=== PATIENT | female | born 1965 | race Caucasian/White ===

== ENCOUNTER 2018-01-19 07:57 | Emergency (ER) | payer OTHER ==
[~2018-01-19] VITALS: Ht 152.4 cm; Wt 114.8 kg
[~2018-01-19 07:57] MED LIST: ALPRAZOLAM0.5 MG PO; AUGMENTIN500 MG PO; AUGMENTIN875 MG PO; BACTRIM,SEPT1 TABLET PO; BACTROBAN NASAL1 G1 BOTH NARES; BENTYL20 MG PO; CLINDAMYCIN HC300 MG PO; DELTASONE20 MG PO; DUONEB 2.5-0.5 M3 ML IH; FLOVENT DISKUS1 DISK IH; HABITROL,NICODE21 MG TD; IMODIUM MS REL1 EACH PO; KEFLEX500 MG PO; LEVAQUIN750 MG PO; LIPITOR5 MG PO; METHYLPHENIDATE20 M1 PO; NAPROSYN500 MG PO; NICOTINE PATCH1 EAC2 TD; OXYCODONE-APAP1 EAC6 PO; RITALIN LA20 MG PO; SPIRIVA1 INHALATI IH; TOBREX5 ML RIGHT EYE; VENTOLIN HFA18 GM IH; ZOFRAN4 MG PO
[2018-01-19 08:23] LABS: BASOPHIL (%) 0.6 % (0-1); BASOPHIL COUNT 0.1 K/uL (0-0.1); EOSINOPHIL (%) 1.4 % (0-5); EOSINOPHIL COUNT 0.2 K/uL (0-0.3); HEMATOCRIT 45.4 % (36.0-46.0); HEMOGLOBIN 15.1 G/DL (11.9-15.5); IMMATURE GRANULOCYTE (%) 0.3 % (0.0-0.7); LYMPHOCYTE (%) 31.9 % (15-42); LYMPHOCYTE COUNT 4.1 K/uL (1.0-2.8); MCH 32.1 PG (29.0-34.0); MCHC 33.3 G/DL (30.0-36.0); MCV 96.4 FL (83-99); MONOCYTE (%) 5.3 % (3-12); MONOCYTE COUNT 0.7 K/uL (0-0.8); NEUTROPHIL (%) 60.5 % (45-76); NEUTROPHIL COUNT 7.8 K/uL (1.8-6.4); PLATELET COUNT 314 K/uL (156-360); RBC DIS.WIDTH-CV 13.5 % (11.8-14.6); RED BLOOD COUNT 4.71 M/uL (3.80-5.20)
[2018-01-19 09:04] LABS: CHLORIDE 100 MEQ/L (99-109); POTASSIUM 3.6 MEQ/L (3.7-5.4); SODIUM 140 MEQ/L (136-147)
[2018-01-19 09:09] LABS: CREATININE 0.9 MG/DL (0.6-1.3); GFR ESTIMATE (CALCULATED) > 59 mL/min/; GLUCOSE 153 mg/dL (70-99); UREA NITROGEN (BUN) 13 mg/dL (9-23)
[2018-01-19] MEDS ORDERED: ZITHROMAX Z-PA250 MG PO (12:33)
[2018-01-19] MEDS ORDERED: PREDNISONE50 MG PO (12:33)
[2018-01-19 13:04] VITALS: BP 122/79
== END 2018-01-19 13:06 | disposition home or self-care (01) ==
LOC: EME 07:57
PROVIDERS: Emergency Medicine
DX: J44.1 Chronic obstructive pulmonary disease with (acute) exacerbation (principal); J20.9 Acute bronchitis, unspecified; J44.0 Chronic obstructive pulmonary disease with (acute) lower respiratory infection; F17.210 Nicotine dependence, cigarettes, uncomplicated; F41.9 Anxiety disorder, unspecified
CPT/HCPCS: 71046; 80048; 85025; 87502; 87651 90; 93005; 94640; 94640 76; 99281; 99283; J2930

== ENCOUNTER 2018-03-03 10:41 | Emergency (ER) | payer OTHER ==
[~2018-03-03] VITALS: Ht 152.4 cm; Wt 117.3 kg
[~2018-03-03 10:41] MED LIST changes: +PREDNISONE50 MG PO; +ZITHROMAX Z-PA250 MG PO
[2018-03-03 12:29] LABS: HEMATOCRIT 46.1 % (36.0-46.0); HEMOGLOBIN 15.5 G/DL (11.9-15.5); MCH 32.8 PG (29.0-34.0); MCHC 33.6 G/DL (30.0-36.0); MCV 97.7 FL (83-99); PLATELET COUNT 333 K/uL (156-360); RBC DIS.WIDTH-CV 13.7 % (11.8-14.6); RBC DIS.WIDTH-SD 49.6 % (39-53); RED BLOOD COUNT 4.72 M/uL (3.80-5.20); WHITE BLOOD COUNT 11.6 K/uL (4.1-10.2)
[2018-03-03 12:40] LABS: ALBUMIN 3.9 g/dL (3.2-4.8)
[2018-03-03 12:41] LABS: CHLORIDE 101 mEq/L (99-109); POTASSIUM 4.3 mEq/L (3.7-5.4); SODIUM 140 mEq/L (136-147)
[2018-03-03 12:43] LABS: GLUCOSE 177 mg/dL (70-99)
[2018-03-03 12:45] LABS: TOTAL BILIRUBIN 0.3 mg/dL (0.0-1.0)
[2018-03-03 12:46] LABS: ALKALINE PHOSPHATASE 110 IU/L (3-129)
[2018-03-03 12:47] LABS: CREATININE 1.2 mg/dL (0.6-1.3); GFR ESTIMATE (CALCULATED) 50 mL/min/
[2018-03-03 12:48] LABS: AST (GOT) 19 IU/L (2-34); UREA NITROGEN (BUN) 13 mg/dL (9-23)
[2018-03-03 12:49] LABS: ALT (GPT) 23 IU/L (3-49)
[2018-03-03 13:34] LABS: APPEARANCE CLEAR ((CLEAR)); BILIRUBIN NEGATIVE; BLOOD SMALL; COLOR YELLOW ((YELLOW)); GLUCOSE (STRIP) NEGATIVE; KETONES NEGATIVE; LEUKOCYTES NEGATIVE; NITRITE NEGATIVE; PROTEIN (STRIP) NEGATIVE; SPECIFIC GRAVITY 1.017 (1.000-1.030); UROBILINOGEN 0.2 MG/DL (0.2-1.0)
[2018-03-03 13:38] LABS: BACTERIA NONE SEEN /HPF; EPITHELIAL CELLS 1+ /HPF; HYALINE CASTS 0-5 /LPF; MUCUS TRACE /LPF; RED BLOOD CELLS 0-5 /HPF (0-5); UCUL ADDED? NO; WHITE BLOOD CELLS 0-5 /HPF (0-5)
[2018-03-03 14:42] VITALS: BP 101/65
== END 2018-03-03 14:43 | disposition home or self-care (01) ==
LOC: EME 10:41
PROVIDERS: Nurse Practitioner Family
DX: R60.0 Localized edema (principal); M54.5 Low back pain; J44.9 Chronic obstructive pulmonary disease, unspecified; F41.9 Anxiety disorder, unspecified; F17.210 Nicotine dependence, cigarettes, uncomplicated; Z90.49 Acquired absence of other specified parts of digestive tract; Z88.1 Allergy status to other antibiotic agents
CPT/HCPCS: 72100; 80053; 81003; 85027; 93970; 99281; 99284

== ENCOUNTER 2018-03-17 09:10 | Emergency (ER) | payer OTHER ==
[~2018-03-17] VITALS: Ht 152.4 cm; Wt 117.5 kg
[2018-03-17 09:29] LABS: HEMATOCRIT 46.1 % (36.0-46.0); HEMOGLOBIN 15.4 G/DL (11.9-15.5); MCH 32.4 PG (29.0-34.0); MCHC 33.4 G/DL (30.0-36.0); MCV 96.8 FL (83-99); PLATELET COUNT 333 K/uL (156-360); RBC DIS.WIDTH-CV 13.6 % (11.8-14.6); RED BLOOD COUNT 4.76 M/uL (3.80-5.20); WHITE BLOOD COUNT 12.2 K/uL (4.1-10.2)
[2018-03-17 09:39] LABS: CHLORIDE 101 mEq/L (99-109)
[2018-03-17 09:40] LABS: SODIUM 140 mEq/L (136-147)
[2018-03-17 09:42] LABS: GLUCOSE 144 mg/dL (70-99); TOTAL PROTEIN 7.4 g/dL (6.4-8.3)
[2018-03-17 09:44] LABS: TOTAL BILIRUBIN 0.4 mg/dL (0.0-1.0)
[2018-03-17 09:45] LABS: ALKALINE PHOSPHATASE 118 IU/L (3-129); CREATININE 0.9 mg/dL (0.6-1.3); GFR ESTIMATE (CALCULATED) > 59 mL/min/
[2018-03-17 09:47] LABS: AST (GOT) 23 IU/L (2-34); UREA NITROGEN (BUN) 9 mg/dL (9-23)
[2018-03-17 09:48] LABS: ALT (GPT) 30 IU/L (3-49)
[2018-03-17 11:01] LABS: LIPASE 28 U/L (1.0-51.0)
[2018-03-17 11:01] LABS: APPEARANCE CLEAR ((CLEAR)); BILIRUBIN NEGATIVE; BLOOD SMALL; COLOR YELLOW ((YELLOW)); GLUCOSE (STRIP) NEGATIVE; KETONES NEGATIVE; LEUKOCYTES NEGATIVE; NITRITE NEGATIVE; PROTEIN (STRIP) NEGATIVE; SPECIFIC GRAVITY 1.017 (1.000-1.030); UROBILINOGEN 0.2 MG/DL (0.2-1.0)
[2018-03-17 11:03] LABS: BACTERIA NONE SEEN /HPF; EPITHELIAL CELLS RARE /HPF; MUCUS TRACE /LPF; RED BLOOD CELLS 0-5 /HPF (0-5); UCUL ADDED? NO; WHITE BLOOD CELLS 0-5 /HPF (0-5)
[2018-03-17] MEDS ORDERED: LEVSIN-SL0.125 MG SL (12:08)
[2018-03-17] MEDS ORDERED: ZOFRAN ODT4 MG PO (12:08)
[2018-03-17 12:53] VITALS: BP 133/62
== END 2018-03-17 12:55 | disposition home or self-care (01) ==
LOC: EME 09:10
DX: K52.9 Noninfective gastroenteritis and colitis, unspecified (principal); N83.202 Unspecified ovarian cyst, left side; K42.9 Umbilical hernia without obstruction or gangrene; K57.90 Diverticulosis of intestine, part unspecified, without perforation or abscess without bleeding; J44.9 Chronic obstructive pulmonary disease, unspecified; F41.9 Anxiety disorder, unspecified; F17.200 Nicotine dependence, unspecified, uncomplicated; Z90.49 Acquired absence of other specified parts of digestive tract; Z88.8 Allergy status to other drugs, medicaments and biological substances
CPT/HCPCS: 74177; 80053; 81003; 83690; 85027; 99281; 99285; J2405; J7030

== ENCOUNTER 2018-03-19 08:33 | Emergency (ER) | payer OTHER ==
[~2018-03-19] VITALS: Ht 152.4 cm; Wt 119.5 kg
[~2018-03-19 08:33] MED LIST changes: +LEVSIN-SL0.125 MG SL; +ZOFRAN ODT4 MG PO
[2018-03-19 09:20] LABS: HEMATOCRIT 40.1 % (36.0-46.0); HEMOGLOBIN 13.3 G/DL (11.9-15.5); MCH 32.7 PG (29.0-34.0); MCHC 33.2 G/DL (30.0-36.0); MCV 98.5 FL (83-99); PLATELET COUNT 283 K/uL (156-360); RBC DIS.WIDTH-CV 13.6 % (11.8-14.6); RBC DIS.WIDTH-SD 48.7 % (39-53); RED BLOOD COUNT 4.07 M/uL (3.80-5.20); WHITE BLOOD COUNT 9.8 K/uL (4.1-10.2)
[2018-03-19 09:27] LABS: APPEARANCE SL.HAZY ((CLEAR)); BILIRUBIN NEGATIVE; BLOOD SMALL; COLOR YELLOW ((YELLOW)); GLUCOSE (STRIP) NEGATIVE; KETONES NEGATIVE; LEUKOCYTES TRACE; NITRITE NEGATIVE; PROTEIN (STRIP) 30; SPECIFIC GRAVITY 1.024 (1.000-1.030)
[2018-03-19 09:33] LABS: BACTERIA RARE /HPF; EPITHELIAL CELLS 1+ /HPF; HYALINE CASTS 0-5 /LPF; MUCUS 1+ /LPF
[2018-03-19 09:56] LABS: ALBUMIN 3.5 g/dL (3.2-4.8); CHLORIDE 102 mEq/L (99-109); POTASSIUM 4.1 mEq/L (3.7-5.4); SODIUM 140 mEq/L (136-147)
[2018-03-19 09:58] LABS: GLUCOSE 141 mg/dL (70-99)
[2018-03-19 10:01] LABS: TOTAL BILIRUBIN 0.3 mg/dL (0.0-1.0); TOTAL PROTEIN 6.2 g/dL (6.4-8.3)
[2018-03-19 10:02] LABS: ALKALINE PHOSPHATASE 98 IU/L (3-129); CREATININE 0.9 mg/dL (0.6-1.3); GFR ESTIMATE (CALCULATED) > 59 mL/min/
[2018-03-19 10:03] LABS: UREA NITROGEN (BUN) 8 mg/dL (9-23)
[2018-03-19 10:04] LABS: AST (GOT) 30 IU/L (2-34)
[2018-03-19 10:05] LABS: ALT (GPT) 33 IU/L (3-49); LIPASE 21 U/L (1.0-51.0)
[2018-03-19] MEDS ORDERED: BENTYL10 MG PO (10:17)
[2018-03-19] MEDS ORDERED: PHENERGAN25 MG PR (10:17)
[2018-03-19 10:40] VITALS: BP 118/62
== END 2018-03-19 10:41 | disposition home or self-care (01) ==
LOC: EME 08:33
PROVIDERS: Nurse Practitioner Family
DX: K52.9 Noninfective gastroenteritis and colitis, unspecified (principal); E86.0 Dehydration; R51 Headache; N83.209 Unspecified ovarian cyst, unspecified side; J44.9 Chronic obstructive pulmonary disease, unspecified; F17.200 Nicotine dependence, unspecified, uncomplicated
CPT/HCPCS: 80053; 81003; 83690; 85027; J1200; J1885; J2765; J7030

== ENCOUNTER 2018-05-06 12:45 | Emergency (ER) | payer OTHER ==
[~2018-05-06] VITALS: Ht 152.4 cm; Wt 117.7 kg
[~2018-05-06 12:45] MED LIST changes: +BENTYL10 MG PO; +PHENERGAN25 MG PR
[2018-05-06 12:47] VITALS: BP 109/84
[2018-05-06 13:09] LABS: HEMATOCRIT 46.1 % (36.0-46.0); HEMOGLOBIN 15.5 G/DL (11.9-15.5); MCHC 33.6 G/DL (30.0-36.0); MCV 98.3 FL (83-99); PLATELET COUNT 335 K/uL (156-360); RBC DIS.WIDTH-CV 13.8 % (11.8-14.6); RBC DIS.WIDTH-SD 50.3 % (39-53); RED BLOOD COUNT 4.69 M/uL (3.80-5.20); WHITE BLOOD COUNT 12.4 K/uL (4.1-10.2)
[2018-05-06 13:23] LABS: CHLORIDE 103 mEq/L (99-109); POTASSIUM 3.9 mEq/L (3.7-5.4); SODIUM 143 mEq/L (136-147)
[2018-05-06 13:25] LABS: GLUCOSE 156 mg/dL (70-99)
[2018-05-06 13:29] LABS: CREATININE 0.8 mg/dL (0.6-1.3); GFR ESTIMATE (CALCULATED) > 59 mL/min/
[2018-05-06 13:30] LABS: UREA NITROGEN (BUN) 9 mg/dL (9-23)
[2018-05-06 13:37] LABS: TROP-I INTERPRETATION NEGATIVE; TROPONIN-I < 0.01 ng/mL (0.0-0.30)
[2018-05-06] MEDS ORDERED: PROVENTIL,2.5 MG/3 M IH (16:30)
[2018-05-06] MEDS ORDERED: VENTOLIN HFA18 GM IH (16:30)
[2018-05-06] MEDS ORDERED: PREDNISONE20 MG PO (16:32)
[2018-05-06] MEDS ORDERED: ZITHROMAX Z-PA250 MG PO (16:32)
[2018-05-06] MEDS ORDERED: ROBITUSSIN100 MG/5 M PO (16:35)
== END 2018-05-06 16:46 | disposition home or self-care (01) ==
LOC: EME 12:45
DX: J44.9 Chronic obstructive pulmonary disease, unspecified (principal); D72.829 Elevated white blood cell count, unspecified; F41.9 Anxiety disorder, unspecified; Z87.891 Personal history of nicotine dependence; Z88.8 Allergy status to other drugs, medicaments and biological substances
CPT/HCPCS: 71046; 80048; 84484; 85027; 93005; 94640; 99281; 99284; J1100

== ENCOUNTER 2018-05-27 02:13 | Emergency (ER) | payer OTHER ==
[~2018-05-27] VITALS: Ht 152.4 cm; Wt 120.6 kg
[~2018-05-27 02:13] MED LIST changes: +PREDNISONE20 MG PO; +PROVENTIL,2.5 MG/3 M IH; +ROBITUSSIN100 MG/5 M PO
[2018-05-27 05:24] VITALS: BP 132/78
== END 2018-05-27 05:25 | disposition left against medical advice (07) ==
LOC: EME → EDBD 02:13 → EME 02:13
DX: J44.1 Chronic obstructive pulmonary disease with (acute) exacerbation (principal); F17.200 Nicotine dependence, unspecified, uncomplicated; F41.9 Anxiety disorder, unspecified; Z88.8 Allergy status to other drugs, medicaments and biological substances
CPT/HCPCS: 71046; 93005; 99281; 99285